=== PATIENT | male | born 1950 | race Caucasian/White ===

== ENCOUNTER 2016-03-06 14:01 | Emergency (ER) | payer MEDICARE ==
[2016-03-06 14:12] VITALS: TEMP 97.7; BMI 30.9
[2016-03-06] MEDS ORDERED: NS 1,000 ML IV ONE (14:12)
[2016-03-06] MEDS ORDERED: ONDANSETRON HCL 4 MG/2 ML VIAL IV ONE (14:12)
[2016-03-06] MEDS ORDERED: HYDROmorphone 1 MG INJECTION IV ONE ×2 (14:16→15:09)
--- NOTE | 2016-03-06 14:22 | EDPRACDOC ---
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 Location: Reports: Epigastric Pain Context: Reports: Spontaneous Pain Severity: Moderate Pain Quality: Reports: Sharp Pain Radiation: Reports: No Radiation Adult Abdominal History: Denies: Bowel Obstruction Modifying Factors: improves with: Nothing <Katarzyna Jackson - Last Filed: 03/06/16 14:50> <JamIsaiah Edgard - Last Filed: 03/06/16 16:13> - General Information Chief Complaint: Abdominal Pain Stated Complaint: EPICGASTRIC PAIN Time Seen by Provider: 03/06/16 14:11 Home Medications: Home Medications Tamsulosin HCl [Flomax] 0.4 mg PO QHS 12/27/15 Allergies/Adverse Reactions: Allergies Allergy/AdvReac Type Severity Reaction Status Date / Time lorazepam [From Ativan] Allergy Confusion Verified 03/06/16 14:09 morphine Allergy Arrest-Card Verified 03/06/16 14:09 iac* Penicillins Allergy Unknown Verified 03/06/16 14:09 - History of Present Illness HPI: PT HAS UPPER ABD PAIN AND CP. PT SAID THAT IT STARTED TODAY AFTER RAKING LEAVES. THE PT SAID THAT HE'S HAD THIS IN THE PAST, BUT NO ONE HAS DONE ANYTHING. PT DOES DRINK HEAVILY. (Katarzyna Jackson) ED Past Medical History - Patient Medical History Neurological History: Denies: Cerebrovascular Accident, Seizures, Dementia, Guillian-Brice Syndrome, Parkinson's, Multiple Sclerosis Cardiac History: Reports: Hypertension, Hypercholesterolemia. Denies: Coronary Artery Disease, Congestive Heart Failure, Heart Attack, Cardiac Catheterization , CABG, Stress Test, Pacemaker, Syncope Respiratory History: Reports: COPD. Denies: Asthma, Pneumonia, Emphysema, Pulmonary Embolism GI/ History: Reports: Gastroesophageal Reflux, BPH. Denies: Renal Disease, Renal Failure, Urinary Tract Infection, Kidney Stones, Ulcer, Diverticulosis, Pancreatitis Musculoskeletal History: Denies: Arthritis, Gout Psychological History: Denies: Depression, Anxiety, Bipolar Disorder, Substance Use Disorder Systemic History: Denies: Anemia, Hyperthyroidism, Hypothyroidism Surgical History: Reports: Cholecystectomy, Hernia Surgery (UMBILICAL & HIATIAL) , Other (Left leg fracture repair tib fib; Hiatal hernia surgery in [place] years ago). Denies: CABG, Angioplasty, Cardiac Catheterization, Tonsillectomy/ Adnoidectomy - Family Medical History Denies: Hypertension, Diabetes, Cancer, Stroke, Cardiac Disorders - Social Medical History Smoking Status: Heavy tobacco smoker (5 or more cigarettes/day or daily pipe/ cigar) Social History: Reports: Alcohol Use. Denies: Substance Use Disorder ETOH: Abuse Substance Abuse: None Lives In: Home <Katarzyna Jackson - Last Filed: 03/06/16 14:50> EDM Review of Systems - Review of Systems ROS Negative Except as Marked: Yes All systems reviewed and were negative except as marked Respiratory: Shortness of Breath Cardiovascular: Chest Pain Gastrointestinal: Pain <Katarzyna Jackson - Last Filed: 03/06/16 14:50> - Physical Exam Constitutional: No apparent distress, Alert (Awake), ETOH Oriented to: Time, Person, Place - HEENT Head: Normal ( normocephalic) Eye Exam: Normal (PERRL, EOMI, Sclera white) Oropharynx: Normal (Pharynx:Moist without exudate,Gums-no swelling) ENT EAC: Normal TMJ: Normal Nose: No Symptoms Reported (septum midline) Neck: Normal (FROM, trachea at midline) - Respiratory/Cardiovascular Respiratory: Normal - CTA (BBS clear to auscultation without adventitious sounds ) Cardiovascular: Normal (RRR without murmur, gallop or rub) - GI Auscultation: Normal (NABS) Palpation: Normal (Soft,No rebound or guarding, non distended) Tenderness: Mild, Epigastric Barnes's Sign: Negative - Musculoskeletal Back: Normal (Non-Tender) Extremities: Normal (Normal tone, Pulses 2+ No cyanosis or edema, FROM) - Integumentary Skin: Normal, Warm, Dry Lymphatics: Normal (no adenopathy) - Neurologic Memory Impaired: Normal Motor Function: Normal (Normal tone, Pulses 2+ No cyanosis or edema, FROM) Cranial Nerve: Normal (CN II-X11 intact sensation, strength 5/5) Cerebellar: Normal Mood Description: Normal Thought: Coherent Perception: Normal <Katarzyna Jackson - Last Filed: 03/06/16 14:50> - Results 03/06/16 14:20 03/06/16 14:20 - EKG EKG #1 EKG Time: 14:10 -: Yes EKG interpreted by me Rate: bpm: 79 [place]: Normal Rhythm: NSR Block: None Hypertrophy: None ST: Normal Comparison: 02/06/16 - Diagnostic Imaging Chest Image interpreted by: Radiologist <Katarzyna Jackson - Last Filed: 03/06/16 14:50> - Results 03/06/16 14:20 03/06/16 14:20 <Isaiah Polk - Last Filed: 03/06/16 16:13> - Results WBC 7.5 xk/uL (3.8-10.8) 03/06/16 14:20 RBC 4.64 xM/uL (4.70-6.10) L 03/06/16 14:20 Hgb 14.0 g/dL (14.0-18.0) 03/06/16 14:20 Hct 42.1 % (42-52) 03/06/16 14:20 MCV 91 fL (80-94) 03/06/16 14:20 MCH 30.2 pg (27-32) 03/06/16 14:20 MCHC 33.3 g/dl (33-36) 03/06/16 14:20 RDW 14.8 % (11.5-14.5) H 03/06/16 14:20 Plt Count 200 xk/uL (130-400) 03/06/16 14:20 MPV 9.5 fL (7.4-10.4) 03/06/16 14:20 Neut % (Auto) 49.5 % (45-76) 03/06/16 14:20 Lymph % (Auto) 37.2 % (17-44) 03/06/16 14:20 Towns % (Auto) 6.4 % (3-10) 03/06/16 14:20 Eos % (Auto) 5.4 % (0-5) H 03/06/16 14:20 Baso % (Auto) 1.5 % (0-2) 03/06/16 14:20 Absolute Neuts (auto) 3.68 xk/uL (1.7-8.2) 03/06/16 14:20 Absolute Lymphs (auto) 2.78 xk/uL (0.65-4.75) 03/06/16 14:20 Sodium 131 mEq/L (137-146) L 03/06/16 14:20 Potassium 3.7 mEq/L (3.5-5.1) 03/06/16 14:20 Chloride 93 mEq/L (98-107) L 03/06/16 14:20 Carbon Dioxide 25 mMOL/L (22-33) 03/06/16 14:20 Anion Gap 17 mEq/L (8-16) H 03/06/16 14:20 BUN 7 MG/DL (9-20) L 03/06/16 14:20 Creatinine 1.10 MG/DL (0.66-1.25) 03/06/16 14:20 Estimated GFR (MDRD) > 60 mL/min (>=60) 03/06/16 14:20 Glucose 81 MG/DL (70-99) 03/06/16 14:20 Calculated Osmolality 250 MOs/Kg (270-290) L 03/06/16 14:20 Calcium 9.0 MG/DL (8.4-10.2) 03/06/16 14:20 Total Bilirubin 1.0 MG/DL (0.2-1.3) 03/06/16 14:20 AST 46 IU/L (17-59) 03/06/16 14:20 ALT 49 IU/L (21-72) 03/06/16 14:20 Alkaline Phosphatase 70 IU/L (50-160) 03/06/16 14:20 Troponin I < 0.01 ng/mL (<.04) 03/06/16 14:20 Total Protein 8.1 G/DL (6.3-8.2) 03/06/16 14:20 Albumin 4.6 G/DL (3.5-5.0) 03/06/16 14:20 Lipase 122 U/L (23-300) 03/06/16 14:20 Urine Color Pale yell0w 03/06/16 14:15 Urine Clarity Clear 03/06/16 14:15 Urine pH 5.0 (5.0-8.0) 03/06/16 14:15 Ur Specific [place] 1.005 (1.003-1.035) 03/06/16 14:15 Urine Protein Neg (NEG/TRACE) 03/06/16 14:15 Urine Glucose (UA) Neg (NEGATIVE) 03/06/16 14:15 Urine Ketones Neg (NEGATIVE) 03/06/16 14:15 Urine Occult Blood Neg (NEG/TRACE) 03/06/16 14:15 Urine Nitrite Neg (NEGATIVE) 03/06/16 14:15 Urine Bilirubin Neg (NEGATIVE) 03/06/16 14:15 Urine Urobilinogen 0.2 MG/DL (0-1) 03/06/16 14:15 Ur Leukocyte Esterase Neg (NEGATIVE) 03/06/16 14:15 Urine RBC 0-2 (0-2) 03/06/16 14:15 Urine WBC 0-2 (0-2) 03/06/16 14:15 Urine Bacteria Few (NEG/FEW) 03/06/16 14:15 Plasma/Serum Ethyl Alc 0.30 % (<0.01) H 03/06/16 14:20 Lab Results 03/06/16 03/06/16 03/06/16 14:20 14:20 14:20 WBC 7.5 RBC 4.64 L Hgb 14.0 Hct 42.1 MCV 91 MCH 30.2 MCHC 33.3 RDW 14.8 H Plt Count 200 MPV 9.5 Neut % (Auto) 49.5 Lymph % (Auto) 37.2 Towns % (Auto) 6.4 Eos % (Auto) 5.4 H Baso % (Auto) 1.5 Absolute Neuts (auto) 3.68 Absolute Lymphs (auto) 2.78 Sodium 131 L Potassium 3.7 Chloride 93 L Carbon Dioxide 25 Anion Gap 17 H BUN 7 L Creatinine 1.10 Estimated GFR (MDRD) > 60 Glucose 81 Calculated Osmolality 250 L Calcium 9.0 Total Bilirubin 1.0 AST 46 ALT 49 Alkaline Phosphatase 70 Troponin I < 0.01 Total Protein 8.1 Albumin 4.6 Lipase 122 Urine Color Urine Clarity Urine pH Ur Specific [place] Urine Protein Urine Glucose (UA) Urine Ketones Urine Occult Blood Urine Nitrite Urine Bilirubin Urine Urobilinogen Ur Leukocyte Esterase Urine RBC Urine WBC Urine Bacteria Plasma/Serum Ethyl Alc 03/06/16 03/06/16 14:20 14:15 WBC RBC Hgb Hct MCV MCH MCHC RDW Plt Count MPV Neut % (Auto) Lymph % (Auto) Towns % (Auto) Eos % (Auto) Baso % (Auto) Absolute Neuts (auto) Absolute Lymphs (auto) Sodium Potassium Chloride Carbon Dioxide Anion Gap BUN Creatinine Estimated GFR (MDRD) Glucose Calculated Osmolality Calcium Total Bilirubin AST ALT Alkaline Phosphatase Troponin I Total Protein Albumin Lipase Urine Color Pale yell0w Urine Clarity Clear Urine pH 5.0 Ur Specific [place] 1.005 Urine Protein Neg Urine Glucose (UA) Neg Urine Ketones Neg Urine Occult Blood Neg Urine Nitrite Neg Urine Bilirubin Neg Urine Urobilinogen 0.2 Ur Leukocyte Esterase Neg Urine RBC 0-2 Urine WBC 0-2 Urine Bacteria Few Plasma/Serum Ethyl Alc 0.30 H (Isaiah Polk) - Diagnostic Imaging Chest 03/06/16 14:50 No active cardiopulmonary disease. (Katarzyna Jackson) - Additional Information ENDORSED TO CHECK CT AND DC IF NEGATIVE. CT NEGATIVE. (Isaiah Polk) <Katarzyna Jackson - Last Filed: 03/06/16 14:50> Decision Time to Discharge: 16:12 - Departure Disposition: Home Education/Counseling Given To: Patient Education/Counseling Given Regarding: Diagnosis, Treatment, Prognosis <Isaiah Polk - Last Filed: 03/06/16 16:13> - Departure Condition: Good Final Diagnosis: Abdominal pain Instructions: Acute Abdominal Pain (ED) Referrals: None,No Provider [Primary Care Provider] - One Week Arnold Huitron MD [Staff Physician] - One Week Additional Instructions: TYLENOL NEEDED; STOP DRINKING ALCOHOL. MAALOX OR MYLANTA 1/2 HOUR BEFORE MEALS
[2016-03-06 14:29] LABS: AUTOMATED BASOPHIL 1.5 % (0-2); AUTOMATED EOSINOPHIL 5.4 % (0-5); AUTOMATED LYMPH 37.2 % (17-44); AUTOMATED MONOCYTE 6.4 % (3-10); AUTOMATED NEUTROPHIL 49.5 % (45-76); MPV 9.5 fL (7.4-10.4)
--- NOTE | 2016-03-06 14:43 | DIRPT ---
CLINICAL DATA: Shortness of breath, chest pain. EXAM: CHEST 2 VIEW COMPARISON: February 06, 2016. FINDINGS: The heart size and mediastinal contours are within normal limits. Both lungs are clear. No pneumothorax or pleural effusion is noted. The visualized skeletal structures are unremarkable. IMPRESSION: No active cardiopulmonary disease. Electronically Signed By: Miah Perez Jr, M.D. On: 03/06/2016 14:41
[2016-03-06 14:48] LABS: BLOOD UREA NITROGEN 7 MG/DL (9-20); CALCULATED OSMOLALITY 250 MOs/Kg (270-290); CHLORIDE 93 mEq/L (98-107); GLUCOSE 81 MG/DL (70-99); SODIUM LEVEL 131 mEq/L (137-146); TOTAL PROTEIN 8.1 G/DL (6.3-8.2)
[2016-03-06 15:00] LABS: RBC/URINE 0-2 (0-2); WBC/URINE 0-2 (0-2)
[2016-03-06 15:03] LABS: LEUKOCYTES/URINE NEG (NEGATIVE); NITRITE/URINE NEG (NEGATIVE); URINE OCCULT BLOOD NEG (NEG/TRACE)
[2016-03-06] MEDS ORDERED: PANTOPRAZOLE 40 MG VIAL IV ONE (15:09)
[2016-03-06] MEDS ORDERED: Pharmacy Review for Metformin - IV Contrast Given SCH (16:00)
--- NOTE | 2016-03-06 16:08 | DIRPT ---
CLINICAL DATA: Epigastric pain. EXAM: CT ABDOMEN AND PELVIS WITH CONTRAST TECHNIQUE: Multidetector CT imaging of the abdomen and pelvis was performed using the standard protocol following bolus administration of intravenous contrast. CONTRAST: 100 cc Isovue 370 COMPARISON: January 07, 2016 FINDINGS: Normal lung bases. Small hiatal hernia. No free air or fluid. Hepatic steatosis is identified after cholecystectomy. Visualized portal veins are within normal limits. Minimal intrahepatic ductal dilatation, likely from previous cholecystectomy. The common bile duct is mildly prominent for the same reason. The adrenal glands and spleen are within normal limits. The pancreas is normal in appearance with no mass or peripancreatic stranding. There is no hydronephrosis. The renal pelvises are prominent bilaterally as are the ureters to the level of the bladder. No renal stones are identified. Prominence of the ureters is stable since the previous study. The abdominal aorta is atherosclerotic but not aneurysmal with no dissection. No adenopathy identified within the abdomen. Again, there is a small hiatal hernia. The stomach is otherwise normal in appearance. No small bowel abnormality or obstruction. Several calcifications are seen in the cecum near the origin of the appendix, possibly extending into the proximal appendix. However, the appendix itself is normal in appearance with no appendicitis. The pelvis demonstrates mild distention of the bladder. There may be mild bladder wall thickening again identified but unchanged. Mild rounded enhancement of the prostate superiorly is nonspecific best seen on series 3, image 79. Recommend correlation with PSA. No adenopathy is identified within the pelvis. The pelvis is otherwise normal. Degenerative changes seen within the spine. Scalloping of the superior endplate of L5 is unchanged to slightly more sclerotic in the interval. Delayed images demonstrate no filling defects within the opacified portions of the renal collecting systems. IMPRESSION: 1. No acute cause for epigastric pain identified. 2. Intra and extrahepatic biliary duct dilatation is stable, likely from previous cholecystectomy. 3. The extra renal pelvises and ureters are mildly distended, probably due to distension of the bladder. Electronically Signed By: Jose Bourgeois III, M.D On: 03/06/2016 16:06
[2016-03-06 16:41] VITALS: BP 145/74
[2016-03-06 17:28] VITALS: PULSE 83
== END 2016-03-06 14:12 | disposition home or self-care (01) ==
LOC: ED 14:01
DX: R10.9 Unspecified abdominal pain (principal)
CPT/HCPCS: 36415; 71020; 74177; 80053; 80307; 81001; 83690; 84484; 85025; 93005; 96374; 96375; 96376; 99283; A9698; J1170; J2405; J3490; S0164

== ENCOUNTER 2016-03-19 15:37 | Emergency (ER) | payer MEDICARE ==
[2016-03-19 15:37] VITALS: BMI 30.9
[2016-03-19] MEDS ORDERED: NS 1,000 ML IV ONE (15:49)
[2016-03-19 16:13] LABS: LEUKOCYTES/URINE NEG (NEGATIVE); NITRITE/URINE NEG (NEGATIVE); RBC/URINE 0-2 (0-2); URINE OCCULT BLOOD NEG (NEG/TRACE); WBC/URINE 0-2 (0-2)
[2016-03-19 16:14] LABS: AUTOMATED BASOPHIL 0.2 % (0-2); AUTOMATED EOSINOPHIL 6.9 % (0-5); AUTOMATED LYMPH 34.4 % (17-44); AUTOMATED MONOCYTE 8.2 % (3-10); AUTOMATED NEUTROPHIL 50.3 % (45-76)
--- NOTE | 2016-03-19 16:15 | EDPRACDOC ---
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 HE HAS BEEN DRINKING HEAVILY. PER EMS , PT DID NOT HAVE A LOC. PT VERY SOMNOLENT NOW AND IS UNABLE TO GIVE ANY HX. Reason for Fall: Reports: lost balance Loss of Consciousness: no loss of consciousness Allergies/Adverse Reactions: Allergies lorazepam [From Ativan] Allergy (Verified 03/06/16 14:09) Confusion FAMILY STATES ATIVAN INCREASED CONFUSION WITH DTS morphine Allergy (Verified 03/06/16 14:09) Arrest-Cardiac* Penicillins Allergy (Verified 03/06/16 14:09) Unknown Home Medications: Ambulatory Orders Tamsulosin HCl [Flomax] 0.4 mg PO QHS 12/27/15 ED Past Medical History - Patient Medical History Neurological History: Denies: Cerebrovascular Accident, Seizures, Dementia, Guillian-Peralta Syndrome, Parkinson's, Multiple Sclerosis Cardiac History: Reports: Hypertension, Hypercholesterolemia. Denies: Coronary Artery Disease, Congestive Heart Failure, Heart Attack, Cardiac Catheterization , CABG, Stress Test, Pacemaker, Syncope Respiratory History: Reports: COPD. Denies: Asthma, Pneumonia, Emphysema, Pulmonary Embolism GI/ History: Reports: Gastroesophageal Reflux, BPH. Denies: Renal Disease, Renal Failure, Urinary Tract Infection, Kidney Stones, Ulcer, Diverticulosis, Pancreatitis Musculoskeletal History: Denies: Arthritis, Gout Psychological History: Denies: Depression, Anxiety, Bipolar Disorder, Substance Use Disorder Systemic History: Denies: Anemia, Hyperthyroidism, Hypothyroidism Surgical History: Reports: Cholecystectomy, Hernia Surgery (UMBILICAL & HIATIAL) , Other (Left leg fracture repair tib fib; Hiatal hernia surgery in [place] years ago). Denies: CABG, Angioplasty, Cardiac Catheterization, Tonsillectomy/ Adnoidectomy - Family Medical History Denies: Hypertension, Diabetes, Cancer, Stroke, Cardiac Disorders - Social Medical History Smoking Status: Heavy tobacco smoker (5 or more cigarettes/day or daily pipe/ cigar) Social History: Denies: Substance Use Disorder ETOH: Alcoholic Substance Abuse: None Lives In: Home EDM Review of Systems - Review of Systems ROS Unobtainable: Yes Review of systems cannot be obtained due to the patient's medical condition - Physical Exam Constitutional: ETOH, Somnolent Oriented to: Person Last recorded Vital Signs: Oxygen Pulse Oxygen Saturation O2 Device Oxygen Flow Rate Fraction of Inspired Oxygen ( FIO2) - HEENT Head: Normal ( normocephalic) Eye Exam: Normal (PERRL, EOMI, Sclera white) Oropharynx: Other (BITE TO TIP OF TONGUE. NON GAPING.) ENT EAC: Normal TMJ: Normal Nose: No Symptoms Reported (septum midline) Neck: In Collar - Respiratory/Cardiovascular Respiratory: Normal - CTA (BBS clear to auscultation without adventitious sounds ) Cardiovascular: Normal (RRR without murmur, gallop or rub) - GI Auscultation: Normal (NABS) Palpation: Normal (Soft,No rebound or guarding, non distended) Tenderness: Non tender Barnes's Sign: Negative - Musculoskeletal Back: Normal (Non-Tender) Extremities: Normal (Normal tone, Pulses 2+ No cyanosis or edema, FROM) - Integumentary Skin: Normal, Warm, Dry Lymphatics: Normal (no adenopathy) - Neurologic Memory Impaired: Unable to Test Motor Function: Unable to Test Cranial Nerve: Unable to Test Cerebellar: Unable to Test - Re-evaluation Re-evaluation 1 Re-evaluation Time: 16:54 (PT AWAKE AND ALERT. ABLE TO WALK.) - Results 03/19/16 16:00 03/19/16 16:00 Urine Color Pale yellow 03/19/16 16:00 Urine Clarity Clear 03/19/16 16:00 Urine pH 5.0 (5.0-8.0) 03/19/16 16:00 Ur Specific [place] 1.005 (1.003-1.035) 03/19/16 16:00 Urine Protein Neg (NEG/TRACE) 03/19/16 16:00 Urine Glucose (UA) Neg (NEGATIVE) 03/19/16 16:00 Urine Ketones Neg (NEGATIVE) 03/19/16 16:00 Urine Occult Blood Neg (NEG/TRACE) 03/19/16 16:00 Urine Nitrite Neg (NEGATIVE) 03/19/16 16:00 Urine Bilirubin Neg (NEGATIVE) 03/19/16 16:00 Urine Urobilinogen <2.0 MG/DL (0-1) 03/19/16 16:00 Ur Leukocyte Esterase Neg (NEGATIVE) 03/19/16 16:00 Urine RBC 0-2 (0-2) 03/19/16 16:00 Urine WBC 0-2 (0-2) 03/19/16 16:00 Lab Results 03/19/16 16:00 Urine Color Pale yellow Urine Clarity Clear Urine pH 5.0 Ur Specific [place] 1.005 Urine Protein Neg Urine Glucose (UA) Neg Urine Ketones Neg Urine Occult Blood Neg Urine Nitrite Neg Urine Bilirubin Neg Urine Urobilinogen <2.0 Ur Leukocyte Esterase Neg Urine RBC 0-2 Urine WBC 0-2 - EKG EKG #1 EKG Time: 15:59 -: Yes EKG interpreted by me Rate: bpm: 93 [place]: Normal Rhythm: NSR Block: None Hypertrophy: None ST: Normal - Diagnostic Imaging Head Image interpreted by: Radiologist The appearance of the brain is normal. C-spine Image interpreted by: Radiologist 1. No signs of significant acute traumatic injury to the skull, brain or cervical spine. - Additional Information WHEN TOLD TO STOP DRINKING, HE SAID THAT IT DOES NOT MATTER A "DAMN" WHAT I SAY. Decision Time to Discharge: 16:56 - Departure Yes I personally saw and evaluated the patient. Disposition: Home Condition: Fair Final Diagnosis: Accidental fall, Alcohol abuse, Alcohol intoxication Instructions: Alcohol Intoxication (ED) Education/Counseling Given To: Patient, Family Member Education/Counseling Given Regarding: Diagnosis, Treatment, Follow Up Referrals: None,No Provider [Primary Care Provider] - One Week Arnold Huitron MD [Staff Physician] - One Week Prescriptions: No Action Tamsulosin HCl [Flomax] 0.4 mg PO QHS Additional Instructions: RETURN IF WORSE. STOP DRINKING.
[2016-03-19 16:16] VITALS: TEMP 97.3
[2016-03-19 16:30] LABS: BLOOD UREA NITROGEN 6 MG/DL (9-20); CALCIUM 8.6 MG/DL (8.4-10.2); CALCULATED OSMOLALITY 253 MOs/Kg (270-290); CHLORIDE 98 mEq/L (98-107); ETOH-MGDL 295 mg/dL; GLUCOSE 89 mg/dL (70-99); SODIUM LEVEL 133 mEq/L (137-146); TOTAL PROTEIN 7.6 G/DL (6.3-8.2)
[2016-03-19 16:31] LABS: ALL NEG? YES; MDMA* NEG (NEGATIVE); METHAMPHETAMINES NEG (NEGATIVE); OXYCODONE NEG (NEGATIVE)
--- NOTE | 2016-03-19 16:32 | DIRPT ---
CLINICAL DATA: 65-year-old male with history of fall off of the back of a truck with injury to the head. Unresponsive. EXAM: CT HEAD WITHOUT CONTRAST CT CERVICAL SPINE WITHOUT CONTRAST TECHNIQUE: Multidetector CT imaging of the head and cervical spine was performed following the standard protocol without intravenous contrast. Multiplanar CT image reconstructions of the cervical spine were also generated. COMPARISON: Head CT 06/12/2015. FINDINGS: CT HEAD FINDINGS No acute displaced skull fractures are identified. No acute intracranial abnormality. Specifically, no evidence of acute post-traumatic intracranial hemorrhage, no definite regions of acute/subacute cerebral ischemia, no focal mass, mass effect, hydrocephalus or abnormal intra or extra-axial fluid collections. The visualized paranasal sinuses and mastoids are generally well pneumatized, with exception of some multifocal mucosal thickening throughout the frontal, ethmoid and maxillary sinuses bilaterally. No air-fluid levels are noted. CT CERVICAL SPINE FINDINGS No acute displaced fractures of the cervical spine. Alignment is anatomic. Prevertebral soft tissues are normal. Visualized portions of the upper thorax are unremarkable. IMPRESSION: 1. No signs of significant acute traumatic injury to the skull, brain or cervical spine. 2. The appearance of the brain is normal. Electronically Signed By: Zachary Perales M.D. On: 03/19/2016 16:29
[2016-03-19] MEDS ORDERED: ACETAMINOPHEN 325 MG/TAB TABLET PO ONE (16:47)
[2016-03-19 17:10] VITALS: BP 160/121; PULSE 79
== END 2016-03-19 17:07 | disposition home or self-care (01) ==
LOC: ED 15:37
DX: F10.129 Alcohol abuse with intoxication, unspecified (principal); V89.9XXA Person injured in unspecified vehicle accident, initial encounter; Y93.9 Activity, unspecified
CPT/HCPCS: 36415; 70450; 72125; 80053; 80307; 81001; 85025; 93005; 96360; 99284; G0480; J3490